=== PATIENT | male | born 1975 | race Caucasian/White ===

== ENCOUNTER 2017-01-25 03:21 | Emergency (ER) | payer OTHER ==
[2017-01-25 03:31] VITALS: BP 193/125; PULSE 66; TEMP 97.3; BMI 38.7
[2017-01-25] MEDS ORDERED: diazePAM 5 MG TABLET PO ONE (03:36)
--- NOTE | 2017-01-25 03:36 | PDOC ---
History of Present Illness - General Chief Complaint: Blood Pressure Problem Stated Complaint: STIFFNESS IN NECK Time Seen by Provider: 01/25/17 03:30 History Source: Patient Exam Limitations: No Limitations - History of Present Illness Initial Comments: 01/25/17 03:30 This is a 41-year-old male who comes in complaining of elevated blood pressure and his neck feeling stiff. Patient has a history of borderline hypertension but is never been started on any medication. Patient said that he has had a lot of stress in his life and has been unable to sleep all night and has gotten more and more anxious to the point that he took his blood pressure and it was very high. Patient came in here and when he got here it was less but still somewhat elevated. Patient said that in addition to his blood pressure being high his neck and shoulders feel tight or stiff. Patient denies any trauma to them and said that when he gets under a lot of stress that that quite often happens. Patient denies any chest pain, shortness of breath, headache, change in vision or neurological symptoms. PAST MEDICAL HISTORY: no significant history PAST SURGICAL HISTORY: no significant history FAMILY HISTORY: no pertinant history SOCIAL HISTORY: Pt lives with family and is employed. MEDICATIONS: reviewed ALLERGIES: As per nursing notes Review of Systems General: No fevers or chills, no weakness, no weight loss HEENT: No change in vision. No sore throat,. No ear pain CardioVascular: No chest pain or shortness of breath Respiratory:No cough, or wheezing. Gastrointestinal: no nausea, vomitting, diarrhea or constipation, No rectal bleeding Genitourinary: No dysuria, hematuria, or frequency Musculoskeletal: No joint or muscle pain or swelling Neurologic: No headache, vertigo, dizziness or loss of consciousness Psychiatric: nor depression Skin: No rashes or easy bruising Endocrine: no increased thirst or abnormal weight change Allergic: no skin or latex allergy All other systems reviewed and normal GENERAL: The patient is awake, alert, and fully oriented, in no acute distress. HEAD: Normal with no signs of trauma. Neck: There is no cervical spine tenderness but there is some tightness of the muscles bilaterally EYES: Pupils equal, round and reactive to light, extraocular movements intact, sclera anicteric, conjunctiva clear. EXTREMITIES: Normal range of motion, no edema. NEUROLOGICAL: Normal speech, normal gait. PSYCH: Normal mood, normal affect. SKIN: Warm, Dry, normal turgor, no rashes or lesions noted. Assessment and plan: This is a 41-year-old male who comes in complaining of hypertension and tightness of his muscles of his shoulder and neck. Patient was unable sleep tonight and got himself very anxious and stressed. Patient when he got here had elevated blood pressure. He was given Valium and discharged home with his who drove him home. Patient has a primary care doctor that he has appointment to follow-up with tomorrow. Patient was given a note for no work as the Valium will prevent him from waking up and having to go to work. Past History - Past Medical History Allergies/Adverse Reactions: Allergies Allergy/AdvReac Type Severity Reaction Status Date / Time No Known Allergies Allergy Verified 01/25/17 03:23 Home Medications: Ambulatory Orders NK [No Known Home Medication] 01/25/17 HTN: Yes (not on any meds) - Psycho/Social/Smoking Cessation Hx Anxiety: No Suicidal Ideation: No Smoking History: Never smoked Have you smoked in the past 12 months: Yes Number of Cigarettes Smoked Daily: 1 Information on smoking cessation initiated: No 'Breaking Loose' booklet given: 03/15/16 Hx Alcohol Use: Yes (OCCAS) Drug/Substance Use Hx: No Substance Use Type: None *Physical Exam - Vital Signs Last Vital Signs Temp Pulse Resp BP Pulse Ox 97.3 F L 66 18 193/125 98 01/25/17 03:25 01/25/17 03:25 01/25/17 03:25 01/25/17 03:25 01/25/17 03:25 *DC/Admit/Observation/Transfer Diagnosis at time of Disposition: Anxiety - Discharge Dispostion Disposition: HOME Condition at time of disposition: Stable Admit: No - Patient Instructions Printed Discharge Instructions: DI for High Blood Pressure, How to Monitor Your Blood Pressure at Home Additional Instructions: It is important that you follow-up on your blood pressure and if it is consistently over 140 or thereabouts you should see her doctor and get started on some medication. I am giving you a muscle relaxant and will also make you very drowsy and help you sleep. You most likely will not wake up for the next 6-8 hours. Return to the emergency department immediately with ANY new, persistent or worsening symptoms. Continue any medications as previously prescribed by your physician. You should follow up with your primary doctor as soon as possible regarding today's emergency department visit. . Please make sure your doctor reviews the results of your emergency evaluation. Thank you for coming to the Emergency Department today for your care. It was a pleasure to see you today. Please note that your evaluation is INCOMPLETE until you follow-up with your doctor. - Post Discharge Activity Work/School Note: Back to Work
[2017-01-25] MEDS ORDERED: diazePAM 5 MG TABLET ONE (03:37)
== END 2017-01-25 03:44 | disposition home or self-care (01) ==
LOC: FER 03:21
DX: F41.9 Anxiety disorder, unspecified (principal); I10 Essential (primary) hypertension
CPT/HCPCS: 99281-25